=== PATIENT | female | born 1980 | race Caucasian/White ===

== ENCOUNTER 2018-03-29 20:34 | Emergency (ER) | payer OTHER ==
[2018-03-29 20:52] VITALS: BP 132/74
--- NOTE | 2018-03-29 21:37 | UC ---
UC General HPI - HPI Summary HPI Summary: Patient presents complaining of sore throat for the past 3 days. Today she reports seeing some white spots. She states began with some sinus congestion that she initially thought was just allergies. She denies any associated fever or cough short of breath nausea vomiting diarrhea. - History of Current Complaint Chief Complaint: UCRespiratory Stated Complaint: SORE THROAT Time Seen by Provider: 03/29/18 21:18 Hx Obtained From: Patient Hx Last Menstrual Period: 03/09/18 Onset/Duration: Gradual Onset Timing: Constant Pain Intensity: 3 Alleviating: Nothing Associated Signs & Symptoms: Negative: Fever - Allergy/Home Medications Allergies/Adverse Reactions: Allergies Allergy/AdvReac Type Severity Reaction Status Date / Time azithromycin Allergy Rash Verified 03/29/18 20:46 seasonal Allergy Headache Uncoded 03/29/18 20:46 Home Medications: Home Medications Omeprazole CAP* [Prilosec CAP* 20 MG] 1 tab DAILY 03/29/18 [History Confirmed ] PMH/Surg Hx/FS Hx/Imm Hx Endocrine History: Thyroid Disease GI/ History: Gastroesophageal Reflux Psychological History: Depression - Surgical History Surgical History: Yes Surgery Procedure, Year, and Place: x 1 - Family History Known Family History: Positive: Diabetes - Social History Occupation: Employed Full-time Lives: With Family Alcohol Use: None Substance Use Type: None Smoking Status (MU): Never Smoked Tobacco - Immunization History Vaccination Up to Date: Yes Review of Systems Constitutional: Negative Skin: Negative Eyes: Negative ENT: Sore Throat, Sinus Congestion Respiratory: Negative Cardiovascular: Negative Gastrointestinal: Negative Genitourinary: Negative Motor: Negative Neurovascular: Negative Musculoskeletal: Negative Neurological: Negative Psychological: Negative Is Patient Immunocompromised?: No All Other Systems Reviewed And Are Negative: Yes Physical Exam Triage Information Reviewed: Yes Appearance: Well-Appearing Vital Signs: Initial Vital Signs Temp 97.3 F 03/29/18 20:48 Pulse 73 03/29/18 20:48 Resp 18 03/29/18 20:48 BP 132/74 03/29/18 20:48 Pulse Ox 100 03/29/18 20:48 Vital Signs Reviewed: Yes Eyes: Positive: Conjunctiva Clear ENT: Positive: Pharyngeal erythema, TMs normal, Uvula midline. Negative: Nasal congestion, Nasal drainage, Tonsillar swelling, Tonsillar exudate, Trismus, Muffled voice, Hoarse voice Neck: Positive: Supple, Nontender, No Lymphadenopathy Respiratory: Positive: Lungs clear, Normal breath sounds Cardiovascular: Positive: RRR, No Murmur Abdomen Description: Positive: Nontender, No Organomegaly, Soft Bowel Sounds: Positive: Present Musculoskeletal: Positive: ROM Intact Neurological: Positive: Alert Psychological: Positive: Age Appropriate Behavior Skin Exam: Normal Diagnostics - Laboratory Diagnostic Studies Completed/Ordered: rapid strep=neg Course/Dx - Course Course Of Treatment: rapid strep=neg. - Differential Dx - Multi-Symptom Provider Diagnoses: sore throat Discharge - Sign-Out/Discharge Documenting (check all that apply): Patient Departure - Discharge Plan Condition: Stable Disposition: HOME Patient Education Materials: Pharyngitis (ED) Referrals: Kristen Guaman MD [Primary Care Provider] - 5 Days - Billing Disposition and Condition Condition: STABLE Disposition: Home
== END 2018-03-29 21:42 | disposition home or self-care (01) ==
LOC: UCCORT 20:34
DX: J02.9 Acute pharyngitis, unspecified (principal); E07.9 Disorder of thyroid, unspecified; K21.9 Gastro-esophageal reflux disease without esophagitis; F32.9 Major depressive disorder, single episode, unspecified
CPT/HCPCS: 87651; 99211; G0463

== ENCOUNTER 2019-10-21 07:57 | Emergency (ER) | payer OTHER ==
--- OUTSIDE RECORDS SUMMARY | 2019-10-21 08:05 | XMS REPORT | Continuity of Care Document ---
:1980 External Reference #:[id number] Author Name Lucinda Lau MD Address [address] [place] [address] Care Team Providers Name Role Phone Kristen Guaman MD Care Team Information [facility] [phone] Problems Active Problems Provider Date Morbid obesity Kaycee Angulo NP Onset: 04/06/2015 Type 2 diabetes mellitus Kaycee Angulo NP Onset: 04/17/2016 Hypothyroidism Kaycee Angulo NP Onset: 04/17/2016 Social History Type Date Description Comments Sex Unknown Cigarette Use Does Not Smoke Cigarettes ETOH Use Does Not Drink Alcohol Recreational Drug Use Does Not Use Drugs Tobacco Use Start: Unknown Patient has never smoked Smoking Status Reviewed: 09/30/19 Patient has never smoked Exercise Type/Frequency Exercises rarely Seat Belt/Car Seat Always uses seat belt Allergies, Adverse Reactions, Alerts Active Allergies Reaction Severity Comments Date Azithromycin 04/06/2015 Medications Active Medications SIG Qnty Indications Ordering Date Provider Medroxyprogesterone take 1 tab daily 10tabs N91.4 Chanell, 09/30/2019 Acetate for 10 days. if MD Lucinda 10mg Tablets no period in the next week, call the office to discuss further plans Womens Multivitamin Plus take 1 by mouth 30tabs Caron Gant, 04/06/2015 100mg daily. please CNM Tablets give pt vitamin that is covered by her insurance Levothyroxine Sodium 1 by mouth every Unknown 75mcg day Tablets Omeprazole 1 by mouth every Unknown 20mg Capsules DR day Calcium 600 + D 1 tablet Unknown [id number] twice/day Tablets Metformin HCL take 1 tablet Unknown 1000mg Tablets once daily for 7 days, then take 1 tablet 2 times a day for 7 days, then take 1 tablet 3 times a day. Medications Administered in Office Medication SIG Qnty Indications Ordering Provider Date PT SCRN Tbco Id as Non User Lucinda Lua MD 09/30/2019 Injection PT SCRN Tbco Id as Non User Lucinda Lua MD 09/30/2018 Injection Immunizations Description No Information Available Vital Signs Date Vital Result Comment 09/30/2019 10:38am BP Systolic 142 mmHg BP Diastolic 84 mmHg Height 62 inches 5'2" Weight 263.00 lb BMI (Body Mass Index) 48.1 kg/m2 Last Menstrual Period [id number] 2 Parity 1 09/30/2018 9:12am BP Systolic 138 mmHg BP Diastolic 86 mmHg Height 62 inches 5'2" Weight 273.00 lb BMI (Body Mass Index) 49.9 kg/m2 Last Menstrual Period [id number] 2 Parity 1 Results Description No Information Available Procedures Description No Information Available Medical Devices Description No Information Available Encounters Type Date Location Provider Dx Diagnosis Office Visit 09/30/2019 [facility] Lucinda Lua, 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 Z01.411 Encntr for primary care nurse exam (general) (routine) w abnormal findings E66.8 Other obesity N97.9 Female infertility, unspecified Assessments Date Code Description Provider 09/30/2019 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 if no period in the next week, call the office to discuss further [id number] Encounter for gynecological examination (general) (routine) with abnormal findingsComments: Maintain routine exercise and healthy diet. Try to get adequate sleep at night to improve your overall health (most people need ~8 hours!)Perform periodic breast exams at various times of the month to become familiar with your breast tissue so you are more likely to notice something abnormal. Return for annual exam in 1 year or earlier if concerns arise. Routine cervical cancer screening has changed. Pap smears are no longer done every year for low-risk women. A combination screening with both a pap smear (looking for abnormal cells ) and HPV testing are recommended every 3-5 years. It takes many years for normal cells to become abnormal and many more years for the abnormal cells to become cancer. Women should still come for a yearly visit and exam. When there is an abnormal pap smear or +HPV testing more frequent screening is recommended.E66.8 Other obesityComments:Discussed importance of adding in exercise - walking as much as possible.Understands that weight maymake getting more difficult. Also discussed complications of being overweight during .N97.9 Female infertility, unspecifiedComments:Would not go the route of ART, likely not even ovulation induction. Would consider initial work up with semenanalysis and possible HSG Functional Status Description No Information Available Mental Status Description No Information Available Referrals Description No Information Available
[2019-10-21 08:21] VITALS: BP 139/89
[2019-10-21 08:51] LABS: Influenza A Molecular Negative (Negative); Influenza B Molecular Negative (Negative)
--- NOTE | 2019-10-21 09:11 | UC ---
Throat Pain/Nasal Patrick HPI - HPI Summary HPI Summary: 38-year-old woman comes in with a chief complaint of upper respiratory tract infection symptoms for several days. Rhinorrhea is clear. She has had a sore throat and some body aches. Symptoms any worse at night. 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 - History of Current Complaint Chief Complaint: UCGeneralIllness Stated Complaint: FLU LIKE SYMP Time Seen by Provider: 10/21/19 09:04 Hx Last Menstrual Period: 10/16/2019 Pain Intensity: 7 - Allergies/Home Medications Allergies/Adverse Reactions: Allergies Allergy/AdvReac Type Severity Reaction Status Date / Time azithromycin Allergy Rash Verified 10/21/19 08:17 seasonal Allergy Headache Uncoded 10/21/19 08:17 Home Medications: Home Medications Calcium Carbonate/Vitamin D3 [Calcium 600-Vit D3 400 Caplet] 1 each PO BID 10/21 [History Confirmed 10/21/19] Levothyroxine TAB* [Synthroid TAB*] 75 mcg PO DAILY 10/21/19 [History Confirmed 10/21/19] Metformin ER (NF) [Glucophage ER 750 MG TAB (NF)] 750 mg PO BID 10/21/19 [ History Confirmed 10/21/19] Omeprazole CAP (NF) [Prilosec CAP* 20 MG] 20 mg PO DAILY 10/21/19 [History Confirmed 10/21/19] Vitamin THERAPEUTIC TAB* [Theragran TAB*] 1 tab PO DAILY 10/21/19 [History Confirmed 10/21/19] PMH/Surg Hx/FS Hx/Imm Hx Previously Healthy: Yes Endocrine History: Diabetes, Hypothyroidism GI/ History: Gastroesophageal Reflux - Surgical History Surgical History: Yes Surgery Procedure, Year, and Place: , [place] - Family History Known Family History: Positive: Diabetes - Social History Alcohol Use: None Substance Use Type: None Smoking Status (MU): Never Smoked Tobacco - Immunization History Vaccination Up to Date: Yes Review of Systems All Other Systems Reviewed And Are Negative: Yes Constitutional: Positive: Fever, Other - SEE HPI Skin: Positive: Negative Eyes: Positive: Negative ENT: Positive: Sore Throat, Nasal Discharge, Sinus Congestion Respiratory: Positive: Cough Cardiovascular: Positive: Negative Gastrointestinal: Positive: Negative Motor: Positive: Negative Neurovascular: Positive: Negative Musculoskeletal: Positive: Myalgia Neurological/Mental Status: Positive: Negative Psychological: Positive: Negative Is Patient Immunocompromised?: No Physical Exam Triage Information Reviewed: Yes Appearance: No Pain Distress, Well-Nourished, Ill-Appearing - MILD Vital Signs: Initial Vital Signs Temp 98.7 F 10/21/19 08:15 Pulse 94 10/21/19 08:15 Resp 18 10/21/19 08:15 BP 139/89 10/21/19 08:15 Pulse Ox 99 10/21/19 08:15 Vital Signs Reviewed: Yes Eye Exam: Normal Eyes: Positive: Conjunctiva Clear ENT: Positive: Pharyngeal erythema, Nasal congestion, Nasal drainage, TMs normal Neck: Positive: Supple Respiratory: Positive: Lungs clear, Normal breath sounds, No respiratory distress Cardiovascular: Positive: RRR Musculoskeletal: Positive: Strength Intact, ROM Intact Neurological: Positive: Alert, Muscle Tone Normal Psychological: Positive: Age Appropriate Behavior Skin Exam: Normal Throat Pain/Nasal Course/Dx - Differential Dx/Diagnosis Provider Diagnosis: Upper respiratory infection Discharge ED - Sign-Out/Discharge Documenting (check all that apply): Patient Departure All imaging exams completed and their final reports reviewed: No Studies - Discharge Plan Condition: Stable Disposition: HOME Patient Education Materials: Upper Respiratory Infection (ED) Referrals: Sanjana Alas MD [Primary Care Provider] - Additional Instructions: FOLLOW UP WITH YOUR DOCTOR IF NOT COMPLETELY IMPROVED. GET REEVALUATED SOONER IF NOT IMPROVED OR WORSE OR ANY QUESTIONS OR CONCERNS. - Billing Disposition and Condition Condition: STABLE Disposition: Home
== END 2019-10-21 09:15 | disposition home or self-care (01) ==
LOC: UCCORT 07:57
DX: J06.9 Acute upper respiratory infection, unspecified (principal); E11.9 Type 2 diabetes mellitus without complications; E03.9 Hypothyroidism, unspecified; K21.9 Gastro-esophageal reflux disease without esophagitis; Z79.84 Long term (current) use of oral hypoglycemic drugs; Z88.1 Allergy status to other antibiotic agents; Z91.09 Other allergy status, other than to drugs and biological substances; Z79.890 Hormone replacement therapy; Z79.899 Other long term (current) drug therapy
CPT/HCPCS: 87651; 99211; G0463